=== PATIENT | male | born 2000 | race Caucasian/White ===

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

== ENCOUNTER 2022-11-13 10:06 | Day surgery (SDC) | payer BC ==
[~2022-11-13] VITALS: Ht 182.9 cm; Wt 87.1 kg
[~2022-11-13 10:06] MED LIST changes: +DICYCLOMINE10 MG PO; +OMEPRAZOLE DR40 MG PO; +[UNRECOGNIZED DRUG - OTHER] PO
[2022-11-13 13:23] VITALS: BP 101/61
== END 2022-11-13 13:35 | disposition home or self-care (01) | DRG 379 ==
LOC: ENDO 10:06 → ORM 14:10
PROVIDERS: ATTEND Internal Medicine Gastroenterology
PROC: 0DBB8ZX Excision of Ileum, Via Natural or Artificial Opening Endoscopic, Diagnostic (ICD-10-PCS; principal; 2022-11-13)
PROC: 0DBL8ZX Excision of Transverse Colon, Via Natural or Artificial Opening Endoscopic, Diagnostic (ICD-10-PCS; 2022-11-13)
PROC: 0DBP8ZX Excision of Rectum, Via Natural or Artificial Opening Endoscopic, Diagnostic (ICD-10-PCS; 2022-11-13)
PROC: 0DBF8ZX Excision of Right Large Intestine, Via Natural or Artificial Opening Endoscopic, Diagnostic (ICD-10-PCS; 2022-11-13)
PROC: 0DBG8ZX Excision of Left Large Intestine, Via Natural or Artificial Opening Endoscopic, Diagnostic (ICD-10-PCS; 2022-11-13)
PROC: 0DB98ZX Excision of Duodenum, Via Natural or Artificial Opening Endoscopic, Diagnostic (ICD-10-PCS; 2022-11-13)
PROC: 0DB78ZX Excision of Stomach, Pylorus, Via Natural or Artificial Opening Endoscopic, Diagnostic (ICD-10-PCS; 2022-11-13)
DX: K29.71 Gastritis, unspecified, with bleeding (principal)